=== PATIENT | female | born 1950 | race Asian ===

== ENCOUNTER 2025-03-30 17:59 | Emergency (ER) | payer OTHER, SELFPAY ==
[2025-03-30 18:02] VITALS: BP 184/90
--- NOTE | 2025-03-30 21:24 | ED.GENMED ---
History of Present Illness
General
Chief Complaint: Musculo-Skeletal Complaint
Source: patient
Time Seen by Provider: 03/30/25 21:13
History of Present Illness
History of Present Illness:
74-year-old female presents emergency room complaining of pain in her right leg. Patient developed some discomfort yesterday after shopping for a while. Her noted she came in with bit of a limp. She indicates the pain begins in the right
knee area and radiates down to her calf and perhaps of her foot. No numbness or tingling. No specific trauma or fall. She does have a history of a right knee replacement. No chest pain or shortness of breath. Patient denies any fever or chills.
Past History
Past History
ED Past Medical History: HTN and Other
ED Past Surgical History: Orthopedic (L TKA)
Social History
Tobacco: Non-smoker
Personal:
Employment: Retired
Phy Exam
Physical Exam
Physical Exam:
General: Awake, Alert, Oriented X3. No acute distress.
Vitals: unremarkable
Head: Atraumatic
Eyes: Pupils equal, EOMI
Throat: Airway intact, no exudates
Neck: Trachea midline
Lungs: Clear and equal b/l
Heart: Regular rate, no murmurs
Neuro: Nonfocal
Skin: Warm, dry, no rash
Extremities: pulses equal b/l, no edema. Right leg is warm, strong pulses, good capillary refill. There is no edema. There is no effusion noted of the right knee. Right knee has no warmth or erythema. Right leg move through full range of motion
of the hip and the knee without any significant tenderness.
Course
Orders/Labs/Results
Orders:
Orders
03/30/25 18:06
US Legs, Right [US Periph Venous LOWER Ext RT] Urgent
Comment:
Reason For Exam: pain/swelling
03/30/25 21:24
Ibuprofen [Motrin] 400 mg PO NOW STA
Vital Signs
Initial and Last Documented VS:
Initial Vital Signs
Temp Pulse Resp BP Pulse Ox
97.9 F 53 20 184/90 96
03/30/25 18:02 03/30/25 18:02 03/30/25 18:02 03/30/25 18:02 03/30/25 18:02
Last Documented Vital Signs
Temp Pulse Resp BP Pulse Ox
97.9 F 53 20 184/90 96
03/30/25 18:02 03/30/25 18:02 03/30/25 18:02 03/30/25 18:02 03/30/25 21:26
MDM/Problems Addressed
Differential Diagnosis Includes:
Muscle strain, degenerative joint disease, DVT
MDM/Problems Addressed:
Patient presents with pain in her right lower extremity particularly the right knee and right calf. Physical exam is benign. Ultrasound shows no DVT. Did order x-ray of the knee to exclude any issue with the prosthesis however the wait for x-ray
close considerable and the patient and her decided that she does feel better and really did not want to stay for the x-ray. Patient ambulated out of the department without any difficulty.
*Radiology
Radiology exam reviewed: radiology read reviewed
*Pulse Oximetry
SaO2: 96
Oxygen Mode of Delivery: Room air
Patient hypoxic: no
*Critical Care Note
Total Time (30-74mins, 75-104mins- exclusive of procedures): Not Applicable
ED Attending Note
-
Portions of this chart may have been created with voice recognition software.� Occasional wrong word or��sound alike� substitutions may have occurred due to the inherent limitations of voice recognition software.
Discharge Plan
Departure
Patient Disposition: Home (Routine Discharge)
Date of Disposition: 03/30/25
Time of Disposition: 22:14
Patient with high blood pressure during this ER visit?: Yes
Condition: Good
Discharge Problem:
Leg pain, right
Instructions: Knee Pain (DC)
Prescriptions:
No Action
levothyroxine 50 MCG tablet
50 mcg PO DAILY AT 0700
calcium carbonate [Antacid (calcium carbonate)] 1 TABLET tablet,chewable
1 - 2 tab PO PRN PRN (Reason: GERD)
cholecalciferol (vitamin D3) 1,000 UNITS tablet
1,000 units PO MOFR
Caltrate + D3
1 tab PO MOFR
aspirin 325 MG tablet,delayed release (DR/EC)
325 mg PO DAILY 0RF
sennosides [senna] 1 TABLET tablet
2 tab PO BID 0RF
acetaminophen 325 MG tablet
650 mg PO QID 0RF
tizanidine 2 MG tablet
2 mg PO TID Qty: 45 0RF
Rx Instructions:
tid x1 week
then q6h prn spasm/sleep
hydrocodone-acetaminophen 1 TABLET tablet
1 tab PO Q4HPRN PRN (Reason: moderate-severe pain) Qty: 90 0RF
Rx Instructions:
dx tka
1-2tabs
ongoing therapy
magnesium hydroxide 30 ML suspension
30 ml PO DAILYPRN PRN (Reason: constipation) 0RF
losartan 25 MG tablet
25 mg PO DAILY Qty: 0 0RF
Rx Instructions:
hold sbp <130
prochlorperazine maleate 5 MG tablet
5 mg PO TID Qty: 90 1RF
Rx Instructions:
take 1/2h before pain med
pantoprazole 40 MG tablet,delayed release (DR/EC)
40 mg PO HS Qty: 30 0RF
celecoxib 200 MG capsule
200 mg PO BID Qty: 60 0RF
Referrals:
Chaz Ross MD [Family Provider, Internal Medicine]
Interventions
Interventions:
*Risk Screen - Suicide Last Done: 03/30/25 18:02
*General Assessment Last Done: 03/30/25 18:02
*Neglect/Abuse Screening Last Done: 03/30/25 18:02
*Nursing Disposition Last Done: 03/30/25 22:33
ED-Musculoskeletal Assessment Last Done: 03/30/25 21:28
Discharge Date and Time
Discharge Date/Time: 03/30/25 22:34
Print Language: [place]ET[place]ESE
[2025-03-30] MEDS: MOTRIN 400 MG PO (21:35)
== END 2025-03-30 22:34 | disposition home or self-care (01) ==
LOC: EMR 17:59
PROVIDERS: EMERGENCY PHYSICIAN Emergency Medicine; FAMILY PHYSICIAN Internal Medicine
DX: M79.661 Pain in right lower leg (principal); I10 Essential (primary) hypertension; Z96.653 Presence of artificial knee joint, bilateral
CPT/HCPCS: 99284; 93971